=== PATIENT | male | born 1945 | race African-American/Black ===

== ENCOUNTER 2019-11-22 16:34 | Inpatient (IN) | payer MEDICARE, BC ==
[~2019-11-22] VITALS: Ht 167.6 cm; Wt 78.7 kg
[~2019-11-22 16:34] MED LIST: AMARYL2 MG PO; APAP/CODEINE ELI5 M1 OR; ARICEPT 5 MG TAB5 MG PO; ASA81BEC PO; BENZONATATE200 MG PO; CILOSTAZOL 100100 M1 PO; CILOSTAZOL 100100 MG PO; CRESTOR40 MG PO; DIOVAN OR; DIOVAN40 MG PO; DOXYCYCLINE HY100 MG PO; DUONEB 2.5-0.5 M3 ML; EFFIENT10 MG PO; FEXOFENADINE H180 MG OR; FLEXERIL PO; FUROSEMIDE 20 M20 M1 PO; GLIPIZIDE ER5 MG PO; GLIPIZIDE XL10 MG PO; GLIPIZIDE XL5 MG PO; GLUCOPHAGE500 MG PO; IMDUR 30 MG TAB30 M1 PO; IMDUR 60 MG TAB60 M1 PO; IMDUR120 MG PO; LIPITOR40 MG OR; LIPITOR80 MG PO; NITROSTAT0.4 MG SL; OMEPRAZOLE40 MG PO; PERFOROMIST 20 MCG/2 ML IH; PLAVIX 75 MG TA75 MG PO; PULMICORT0.25 MG/2 IH; PULMICORT0.5 MG/2 M IH; RANEXA 500 MG500 M1 PO; TAMSULOSIN HCL0.4 MG PO; TESSALON PERLE100 MG PO; TOPROL XL50 MG PO; ZETIA10 MG PO; ZPAK PO
[2019-11-22 16:40] VITALS: BP 126/62
[2019-11-22] MEDS ORDERED: ZOLOFT 50 MG TA50 M1 PO (16:47)
[2019-11-22] MEDS ORDERED: LOPRESSOR50 MG PO (16:48)
[2019-11-22] MEDS ORDERED: METFORMIN HCL500 M3 PO ×2 (16:49)
[2019-11-22] MEDS ORDERED: PROSCAR 5MG TABL5 M1 PO (16:50)
[2019-11-22] MEDS ORDERED: MEMANTINE HCL10 MG PO (16:51)
[2019-11-22 17:09] LABS: ABSOLUTE EOSINOPHILS 0.1 thou/uL (0.0-0.7); ABSOLUTE LYMPHOCYTES 1.6 thou/uL (0.8-5.3); ABSOLUTE MONOCYTES 0.6 thou/uL (0.0-1.2); ABSOLUTE NEUTROPHILS 2.3 thou/uL (1.6-8.1); BASOPHILS 0.7 %; EOSINOPHILS 3.2 %; HEMATOCRIT 43.6 % (42.0-52.0); HEMOGLOBIN 14.9 gm/dL (14.0-18.0); LYMPHOCYTES 33.8 %; MCH 27.2 pg (26.0-34.0); MCHC 34.1 g/dL (28.0-37.0); MCV 79.8 fL (80.0-100.0); MONOCYTES 12.2 %; MPV 8.7 fl. (7.2-11.1); NUCLEATED RBCS 0 /100WBC; PLATELET COUNT* 174 thou/uL (150-400); POLYS 50.1 %; RBC 5.46 mil/uL (4.50-6.00); RDW-CV 16.1 % (10.5-14.5); WBC 4.6 thou/uL (4.0-11.0)
[2019-11-22 17:18] LABS: APTT 28.9 Seconds (25.0-31.3); INR 1.1; PROTIME 11.1 Seconds (9.20-11.50)
[2019-11-22 17:19] LABS: CALCIUM 9.2 mg/dL (8.5-10.1)
[2019-11-22 17:27] LABS: ALBUMIN 4.2 g/dL (3.4-5.0); TOTAL BILIRUBIN 0.7 mg/dL (<0.1-1.0); TOTAL PROTEIN 7.7 g/dL (6.4-8.2)
--- NOTE | 2019-11-22 17:52 | NUR ---
AT 1740 OBSERVED PT'S BP 88/40, RETOOK BP AGAIN WITH DIFFERENT CUFF SIZE 63/39, AND DID A MANUAL BP IT MEASURED 68/48. DR COYNE NOTIFIED AND RECEIVED NEW PHYSICIAN'S ORDERS
[2019-11-22 18:48] VITALS: BP 86/46
--- NOTE | 2019-11-22 19:22 | NUR ---
PT ARRIVED ON UNIT AT 1900, REC REPORT FROM ANTHONY ROCHA FROM ED. PT ORIENTED TO ROOM, HANDED OFF TO ANTHONY DURAN, HIGH FALL RISK, HYPOTENSIVE- AVPACED ON TELE
[2019-11-22 20:00] VITALS: BP 101/55
[2019-11-22 21:29] VITALS: BP 133/75
[2019-11-22 21:30] VITALS: BP 125/69
[2019-11-22 23:45] VITALS: BP 123/68
[2019-11-23 04:00] VITALS: BP 120/69
[2019-11-23] MEDS ORDERED: JARDIANCE10 MG PO (04:41)
[2019-11-23] MEDS ORDERED: FLONASE 0.05%50 MCG NARES (04:42)
[2019-11-23] MEDS ORDERED: NAMZARIC 28 MG1 EACH PO (04:44)
[2019-11-23] MEDS ORDERED: PLAVIX 75 MG TA75 MG PO (04:45)
[2019-11-23] MEDS ORDERED: MECLIZINE HCL25 M1 PO (04:47)
[2019-11-23 04:49] LABS: ABSOLUTE EOSINOPHILS 0.2 thou/uL (0.0-0.7); ABSOLUTE LYMPHOCYTES 1.6 thou/uL (0.8-5.3); ABSOLUTE MONOCYTES 0.5 thou/uL (0.0-1.2); ABSOLUTE NEUTROPHILS 1.8 thou/uL (1.6-8.1); BASOPHILS 0.8 %; EOSINOPHILS 3.8 %; HEMOGLOBIN 13.5 gm/dL (14.0-18.0); LYMPHOCYTES 39.7 %; MCH 26.7 pg (26.0-34.0); MCHC 33.7 g/dL (28.0-37.0); MCV 79.1 fL (80.0-100.0); MONOCYTES 11.7 %; MPV 8.6 fl. (7.2-11.1); NUCLEATED RBCS 0 /100WBC; PLATELET COUNT* 155 thou/uL (150-400); RBC 5.06 mil/uL (4.50-6.00); RDW-CV 15.9 % (10.5-14.5); WBC 4.1 thou/uL (4.0-11.0)
[2019-11-23 05:18] LABS: CALCIUM 8.7 mg/dL (8.5-10.1); CREATININE 1.5 mg/dL (0.6-1.3); POTASSIUM 3.4 mmol/L (3.5-5.1)
--- NOTE | 2019-11-23 05:35 | NUR ---
PATIENT PROGRESSING TOWARDS GOALS: BLOOD PRESSURE WNL THIS SHIFT. PATIENT DENIES DIZZINESS, LIGHTHEADEDNESS. PATIENT UP STANDBY ASSIST. PATIENT TO HAVE US UPPER EXTR THIS AM PER DR. PARRISH. CALL LIGHT WITHIN REACH
[2019-11-23 08:00] VITALS: BP 123/66
[2019-11-23 12:00] VITALS: BP 116/63
[2019-11-23 16:00] VITALS: BP 131/64
--- NOTE | 2019-11-23 18:53 | NUR ---
PT. AOX4, CONFUSED AND ERRATIC AT TIME. VSS, AV PACED AND STABLE ON MONITOR. PT. UP TO SIDE OF BED. IVF INFUSING. HOURLY ROUNDING PERFORMED. CALL LIGHT AND PATIENT BELONGINGS PLACED WITHIN REACH.
[2019-11-23 20:10] VITALS: BP 140/71
[2019-11-24] VITALS: BP 132/79
[2019-11-24 04:00] VITALS: BP 147/75
--- NOTE | 2019-11-24 05:17 | NUR ---
PATIENT PROGRESSING TOWARDS GOALS AND DISCHARGE: BP STABLE THROUGHOUT SHIFT. PATIENT HAS PERIODS OF CONFUSION AND FORGETS WHERE HE IS. EASILY REORIENTED. ACCORDING TO DAUGHTER, PATIENT HAS BASELINE DEMENTIA. CALL LIGHT WITHIN REACH
[2019-11-24 08:00] VITALS: BP 135/80
[2019-11-24 10:29] VITALS: BP 135/80
[2019-11-24 10:49] VITALS: BP 135/80
--- NOTE | 2019-11-24 11:49 | EKG ---
[place] [address] ELECTROCARDIOGRAM REPORT Name: SARAH GAVIN Room: [address] ADM IN .R.#: [id number] Admission: 11/22/19 Attend Phys: Asad Cleaning, Discharge: Date of : 41 Date of Service: 11/22/19 1642 Report #: [id number] THIS REPORT FOR: //name// [facility] ED Test Date: 2019-11-22 Test Time: 16:42:17 Pat Name: SARAH GAVIN Department: Room: [facility] Gender: M Associate Material Handler: MS : 1945 Requested By: Hubert Anderson Order Number: [id number] MD: Kofi Munroe Measurements Intervals [place] Rate: 73 P: 52 LA: 150 QRS: -63 QRSD: 166 T: 130 QT: 454 QTc: 501 Interpretive Statements Atrial-ventricular dual-paced complexes with pac No further analysis attempted due to paced rhythm Compared to ECG 07/05/2016 09:15:10 pac noted Electronically Signed On 11-24-2019 11:47:58 CDT by Kofi Munroe [email or web address] <ELECTRONICALLY SIGNED> By: Kofi Munroe MD, [facility] 11/24/19 1147 1642 1642 Kofi Munroe MD, [facility] /EPI
--- NOTE | 2019-11-24 12:54 | NUR ---
ASSUMED PT CARE REPORT RECEIVED FROM NURSE. PT IS AOX4. TRACING AV PACED ON BRIDGE BUILDER. NO COMPLAINT. UP AD MELONY. DISCHARGE ORDERED. IV LINE REMOVED. HEART MONITOR RETRIEVED. HOME HEALTH SERVICES SET UP WITH [facility]. DC INSTRUCTION GIVEN. PT DAUGHTER PIVK UP PATIENT. PT LEFT UNIT AT 1245 ACCOMPANIED BY NURSE TECH IN WHEELCHAIR. BELONGINGS BROUGHT ALONG.
--- NOTE | 2019-11-24 13:01 | NUR ---
ACCUCHECK 66 AT 0700. NO INSULIN GIVEN. BLOOD SUGAR 176 AT LUNCH TIME. INSULIN GIVEN PER SLIDING SCALE
== END 2019-11-24 12:45 | disposition home health service (06) | DRG 314 ==
LOC: M.ERS 16:34 → M.TBA-ER 17:43 → M.2W 19:18
PROVIDERS: Family Medicine; ADMIT Internal Medicine
DX: I95.9 Hypotension, unspecified (principal); N17.0 Acute kidney failure with tubular necrosis; N18.9 Chronic kidney disease, unspecified; I12.9 Hypertensive chronic kidney disease with stage 1 through stage 4 chronic kidney disease, or unspecified chronic kidney disease; E11.22 Type 2 diabetes mellitus with diabetic chronic kidney disease; F03.90 Unspecified dementia, unspecified severity, without behavioral disturbance, psychotic disturbance, mood disturbance, and anxiety; I48.91 Unspecified atrial fibrillation; G47.30 Sleep apnea, unspecified; E11.51 Type 2 diabetes mellitus with diabetic peripheral angiopathy without gangrene; E78.00 Pure hypercholesterolemia, unspecified; I65.29 Occlusion and stenosis of unspecified carotid artery; I71.4 Abdominal aortic aneurysm, without rupture; I25.5 Ischemic cardiomyopathy; I25.10 Atherosclerotic heart disease of native coronary artery without angina pectoris; Z95.1 Presence of aortocoronary bypass graft; Z95.5 Presence of coronary angioplasty implant and graft; Z87.01 Personal history of pneumonia (recurrent); Z95.0 Presence of cardiac pacemaker; I25.2 Old myocardial infarction; Z79.899 Other long term (current) drug therapy; Z79.84 Long term (current) use of oral hypoglycemic drugs; Z87.891 Personal history of nicotine dependence; Z83.3 Family history of diabetes mellitus; Z82.49 Family history of ischemic heart disease and other diseases of the circulatory system